=== PATIENT | female | born 1985 | race African-American/Black ===

== ENCOUNTER 2017-01-04 06:34 | Emergency (ER) | payer MEDICAID, MEDICARE ==
[~2017-01-04] VITALS: Ht 157.5 cm; Wt 50.0 kg
[~2017-01-04 06:34] MED LIST: INSU1INS; METF500T4 PO; REGLAN
[2017-01-04] MEDS ORDERED: SODIUM CHLORIDE 0.9% 1000ML BAG (SEPSIS BOLUS) IV ONE (07:45)
[2017-01-04] MEDS ORDERED: INSULIN REGULAR (HUMULIN R) 300UNITS/3ML SUBCUT ONE (07:45)
[2017-01-04] MEDS ORDERED: ONDANSETRON HCL 4MG/2ML VIAL IV PRN ×2 (09:00→10:00)
[2017-01-04] MEDS ORDERED: MORPHINE SULFATE 4 MG/ML CPJ (NOT FOR IM USE) IV PRN (09:00)
[2017-01-04 09:08] LABS: BASOPHILS % 0.9 % (0.0-2.0); EOSINOPHILS % 0.2 % (0.0-5.0); HEMATOCRIT. 34.2 % (36.0-48.0); HEMOGLOBIN. 10.8 g/dL (12.0-16.0); LYMPHOCYTES % 12.7 % (20.0-50.0); MEAN CORPUSCULAR HEMOGLOBIN 30.7 pg (28.0-32.0); MEAN CORPUSCULAR HGB CONC 31.7 g/dL (31.0-37.0); MEAN CORPUSCULAR VOLUME 96.8 fL (81.0-99.0); MEAN PLATELET VOLUME 8.3 fl (7.4-10.4); MONOCYTES % 3.3 % (2.0-8.0); NEUTROPHILS % 82.9 % (40.0-76.0); PLATELET 344 x1000/uL (130-400); RED BLOOD CELL COUNT 3.53 mill/uL (4.2-5.4); RED CELL DISTRIBUTION WIDTH 14.6 % (11.6-14.6); WHITE BLOOD COUNT 17.6 x1000/uL (4.5-11.0)
[2017-01-04 09:14] LABS: CHLORIDE 102 mEq/L (98-107); INDEX HEMOLYSI 1 (1-3); INDEX ICTERIC 1 (1-4); INDEX LIPEMIC 1 (1-3)
[2017-01-04 09:16] LABS: INR 1.1; PROTHROMBIN TIME 11.4 sec
[2017-01-04 09:23] LABS: ALANINE AMINOTRANSFERASE 12 IU/L (13-61); ALBUMIN 4.2 g/dL (3.4-5.0); ANION GAP 24; CALCIUM 9.6 mg/dL (8.5-10.1); CARBON DIOXIDE 15 mEq/L (21-32); UREA NITROGEN BLOOD 18 mg/dL (7-21); eGFR > 60 mL/min (>60)
[2017-01-04 09:24] LABS: BETA HYDROXYBUTYRATE 5.6 mMol/L (0.0-0.3)
[2017-01-04] MEDS ORDERED: SODIUM CHLORIDE 0.45% 1,000 ML IV SCH (09:52)
[2017-01-04] MEDS ORDERED: LORAZEPAM 2MG/ML CPJ IV PRN (10:00)
[2017-01-04] MEDS ORDERED: HYDROCODONE/ACETAMINOPHEN 5/325MG TABLET PO PRN (10:00)
[2017-01-04] MEDS ORDERED: ENOXAPARIN 40MG/0.4ML SYR SUBCUT SCH (10:00)
[2017-01-04] MEDS ORDERED: GUAIFENESIN 200MG/10ML SUGAR FREE UDC PO PRN (10:00)
[2017-01-04] MEDS ORDERED: DIPHENHYDRAMINE 50MG/ML VIAL IV PRN (10:00)
[2017-01-04] MEDS ORDERED: CLONIDINE 0.1MG TABLET PO PRN (10:00)
[2017-01-04] MEDS ORDERED: HYDROMORPHONE HCL/PF 2MG/ML CPJ IV PRN (10:00)
[2017-01-04] MEDS ORDERED: ACETAMINOPHEN 325MG TABLET PO PRN (10:00)
[2017-01-04] MEDS ORDERED: MAGNESIUM/ALUMINUM HYDROXIDE/SIMETHICONE 30ML UDC PO PRN (10:00)
[2017-01-04] MEDS ORDERED: NA PHOS,M-B/NA PHOS,DI-BA ENEMA 118ML PR PRN (10:00)
[2017-01-04] MEDS ORDERED: IPRATROPIUM/ALBUTEROL 0.5-3(2.5)MG/3ML NEB INH PRN (10:00)
[2017-01-04] MEDS ORDERED: DOCUSATE SODIUM 100MG CAPSULE PO PRN (10:00)
[2017-01-04 10:06] LABS: CLARITY URINE CLEAR (CLEAR); COLOR URINE YELLOW (YELLOW); GLUCOSE URINE 3+ (NEGATIVE); KETONES URINE 4+ (NEGATIVE); LEUKOCYTE ESTERASE URINE NEGATIVE (NEGATIVE); NITRITE URINE NEGATIVE (NEGATIVE); OCCULT BLOOD URINE NEGATIVE (NEGATIVE); PH URINE 5.5 (4.5-8.0); PROTEIN URINE NEGATIVE (NEGATIVE); UROBILINOGEN URINE 0.2 E.U./dL (0.2-1.0)
[2017-01-04 10:08] LABS: BACTERIA URINE NONE SEEN; CALCIUM PHOSPHATE CRYSTALS UR NONE SEEN /lpf; RBC URINE 0-2 /hpf (0-2); SQUAMOUS EPITHELIAL CELL URINE 1+ /lpf (RARE/1+); WAXY CASTS URINE NONE SEEN /lpf; WBC URINE 0-2 /hpf (0-2); YEAST URINE NONE SEEN
[2017-01-04 10:54] LABS: CHLORIDE 110 mEq/L (98-107); INDEX HEMOLYSI 1 (1-3); INDEX ICTERIC 1 (1-4); INDEX LIPEMIC 1 (1-3)
[2017-01-04 11:00] LABS: ANION GAP 19; CALCIUM 8.6 mg/dL (8.5-10.1); CARBON DIOXIDE 18 mEq/L (21-32); UREA NITROGEN BLOOD 17 mg/dL (7-21); eGFR > 60 mL/min (>60)
[2017-01-04] MEDS ORDERED: LEVOFLOXACIN 750MG PREMIX 150 ML IV SCH (11:15)
[2017-01-04] MEDS ORDERED: INSULIN REGULAR (DRIP) 100 UNITS in SODIUM CHLORIDE 0.9% 100 ML IV SCH (11:15)
[2017-01-04] MEDS ORDERED: ONDANSETRON HCL 4MG/2ML VIAL IV ONE (12:15)
[2017-01-04 12:52] VITALS: BP 101/70
[2017-01-05] MEDS ORDERED: ASPIRIN 81MG EC TABLET PO SCH (09:00)
== END 2017-01-04 12:58 | disposition left against medical advice (07) ==
LOC: ER 06:35
DX: E11.65 Type 2 diabetes mellitus with hyperglycemia (principal)
CPT/HCPCS: 36415; 80048; 80053; 81001; 82010; 82962; 85025; 85610; 96361; 96372; 96374; 96375; 96376; 99285; J1815; J1956; J2270; J2405; J7030; Z7610; J7050

== ENCOUNTER 2017-03-21 12:17 | Inpatient (IN) | payer MEDICAID ==
[2017-03-21] VITALS (16 sets, daily range): BP systolic 90–118; BP diastolic 52–77
[~2017-03-21] VITALS: Ht 152.4 cm; Wt 46.9 kg
[2017-03-21] MEDS ORDERED: SODIUM CHLORIDE 0.9% 1,000 ML IV ONE (12:41)
[2017-03-21] MEDS ORDERED: ONDANSETRON HCL 4MG/2ML VIAL IV ONE (13:15)
[2017-03-21] MEDS ORDERED: MORPHINE SULFATE 4 MG/ML CPJ (NOT FOR IM USE) IV ONE (13:15)
[2017-03-21 13:21] LABS: CHLORIDE 100 mEq/L (98-107)
[2017-03-21 13:25] LABS: BASOPHILS % 0.4 % (0.0-2.0); HEMATOCRIT. 40.1 % (36.0-48.0); HEMOGLOBIN. 13.1 g/dL (12.0-16.0); LYMPHOCYTES % 14.1 % (20.0-50.0); MEAN CORPUSCULAR HEMOGLOBIN 30.8 pg (28.0-32.0); MEAN CORPUSCULAR VOLUME 94.3 fL (81.0-99.0); MEAN PLATELET VOLUME 8.1 fl (7.4-10.4); MONOCYTES % 2.8 % (2.0-8.0); NEUTROPHILS % 82.7 % (40.0-76.0); PLATELET 411 x1000/uL (130-400); RED BLOOD CELL COUNT 4.25 mill/uL (4.2-5.4); RED CELL DISTRIBUTION WIDTH 14.4 % (11.6-14.6)
[2017-03-21 13:30] LABS: CARBON DIOXIDE 17 mEq/L (21-32)
[2017-03-21 13:45] LABS: BETA HYDROXYBUTYRATE 6.8 mMol/L (0.0-0.3)
[2017-03-21] MEDS ORDERED: INSULIN REGULAR (DRIP) 100 UNITS in SODIUM CHLORIDE 0.9% 99 ML IV SCH ×2 (14:30→18:01)
[2017-03-21] MEDS ORDERED: DIPHENHYDRAMINE 50MG/ML VIAL IV ONE (14:30)
[2017-03-21] MEDS ORDERED: SODIUM CHLORIDE 0.9% 1,000 ML IV PRN (17:29)
[2017-03-21] MEDS ORDERED: ACETAMINOPHEN 325MG TABLET PO PRN (17:30)
[2017-03-21] MEDS ORDERED: CLONIDINE 0.1MG TABLET PO PRN (17:30)
[2017-03-21] MEDS ORDERED: INSULIN REGULAR (DRIP) 100 UNITS in SODIUM CHLORIDE 0.9% 100 ML IV SCH (17:30)
[2017-03-21] MEDS ORDERED: IPRATROPIUM/ALBUTEROL 0.5-3(2.5)MG/3ML NEB INH PRN (17:30)
[2017-03-21] MEDS ORDERED: ONDANSETRON HCL 4MG/2ML VIAL IV PRN (17:30)
[2017-03-21] MEDS ORDERED: MAGNESIUM/ALUMINUM HYDROXIDE/SIMETHICONE 30ML UDC PO PRN (17:30)
[2017-03-21] MEDS ORDERED: SODIUM CHL 0.9% + KCL 20MEQ/L 1,000 ML IV SCH ×2 (18:00→19:30)
[2017-03-21] MEDS ORDERED: DEXT 5%/0.9% NACL 1,000 ML IV PRN (18:00)
[2017-03-21] MEDS ORDERED: DEXTROSE 50% WATER 50ML SYRINGE IV PRN (18:15)
[2017-03-21] MEDS: BLOOD SUGAR DIAGNOSTIC STRIP TEST SCH ×6 (18:19→23:16)
[2017-03-21] MEDS: DEXTROSE 50% WATER 50ML SYRINGE IV PRN (18:24)
[2017-03-21 19:28] LABS: CLARITY URINE CLEAR (CLEAR); COLOR URINE YELLOW (YELLOW); GLUCOSE URINE 3+ (NEGATIVE); KETONES URINE 4+ (NEGATIVE); LEUKOCYTE ESTERASE URINE NEGATIVE (NEGATIVE); NITRITE URINE NEGATIVE (NEGATIVE); OCCULT BLOOD URINE NEGATIVE (NEGATIVE); PROTEIN URINE NEGATIVE (NEGATIVE); SPECIFIC GRAVITY URINE 1.032 (1.005-1.030); UROBILINOGEN URINE 0.2 E.U./dL (0.2-1.0)
[2017-03-21 19:34] LABS: CHLORIDE 108 mEq/L (98-107)
[2017-03-21 19:40] LABS: CARBON DIOXIDE 23 mEq/L (21-32); PHOSPHORUS 1.4 mg/dL (2.5-4.9)
[2017-03-21 19:41] LABS: *AMPHETAMINES SCREEN URINE NEGATIVE (NEGATIVE); *BARBITURATES SCREEN URINE NEGATIVE (NEGATIVE); *BENZODIAZEPINES SCREEN URINE NEGATIVE (NEGATIVE); *COCAINE SCREEN URINE NEGATIVE (NEGATIVE); METHADONE URINE SCREEN NEGATIVE (NEGATIVE); PHENCYCLIDINE URINE SCREEN NEGATIVE (NEGATIVE)
[2017-03-21 19:53] LABS: CANNABINOID URINE SCREEN PRESUMTIVE POSITIVE (NEGATIVE); OPIATES URINE SCREEN PRESUMTIVE POSITIVE (NEGATIVE)
[2017-03-21] MEDS: ENOXAPARIN 30MG/0.3ML SYR SUBCUT SCH (20:00)
[2017-03-21] MEDS: HYDROCODONE/ACETAMINOPHEN 5/325MG TABLET PO PRN (21:58)
[2017-03-21] MEDS ORDERED: POTASSIUM CHLORIDE INJ 20 MEQ in DEXT 5%/0.9% NACL 1,000 ML IV SCH (22:00)
[2017-03-21] MEDS ORDERED: DEXT 5%/0.9% NACL KCL 20MEQ/L 1,000 ML IV SCH (23:00)
[2017-03-22] VITALS (16 sets, daily range): BP systolic 89–117; BP diastolic 52–80
[2017-03-22] MEDS: BLOOD SUGAR DIAGNOSTIC STRIP TEST SCH ×9 (00:22→08:07)
[2017-03-22] MEDS: DEXTROSE 50% WATER 50ML SYRINGE IV PRN (02:23)
[2017-03-22 05:02] LABS: BASOPHILS % 0.5 % (0.0-2.0); EOSINOPHILS % 1.9 % (0.0-5.0); HEMATOCRIT. 30.7 % (36.0-48.0); HEMOGLOBIN. 10.1 g/dL (12.0-16.0); LYMPHOCYTES % 34.4 % (20.0-50.0); MEAN CORPUSCULAR HEMOGLOBIN 30.9 pg (28.0-32.0); MEAN CORPUSCULAR VOLUME 93.7 fL (81.0-99.0); MEAN PLATELET VOLUME 8.1 fl (7.4-10.4); MONOCYTES % 7.4 % (2.0-8.0); NEUTROPHILS % 55.8 % (40.0-76.0); PLATELET 279 x1000/uL (130-400); RED BLOOD CELL COUNT 3.27 mill/uL (4.2-5.4); RED CELL DISTRIBUTION WIDTH 13.9 % (11.6-14.6)
[2017-03-22 05:50] LABS: CARBON DIOXIDE 23 mEq/L (21-32); CHLORIDE 108 mEq/L (98-107); HDL CHOLESTEROL 86 mg/dL (40-59); LDL CHOLESTEROL 42 mg/dL (5-100)
[2017-03-22] MEDS: ENOXAPARIN 30MG/0.3ML SYR SUBCUT SCH (08:11)
[2017-03-22] MEDS: HYDROCODONE/ACETAMINOPHEN 5/325MG TABLET PO PRN (08:12)
[2017-03-22] MEDS ORDERED: DEXTROSE 50% WATER 50ML SYRINGE IV PRN (08:45)
[2017-03-22] MEDS ORDERED: BLOOD SUGAR DIAGNOSTIC STRIP TEST SCH (09:00)
[2017-03-22] MEDS ORDERED: INSULIN DETEMIR UD 100 UNITS/ML SYR SUBCUT NR (09:00)
[2017-03-22] MEDS ORDERED: INSULIN LISPRO 100 UNITS/ML SUBCUT SCH (09:00)
[2017-03-22] MEDS ORDERED: PANTOPRAZOLE 40MG DR TABLET PO NR (09:15)
[2017-03-22] MEDS ORDERED: INSU3INS6 SUBCUT ×2 (10:35→12:01)
[2017-03-22] MEDS ORDERED: ALPR0.2582 PO (12:11)
== END 2017-03-22 14:00 | disposition home or self-care (01) | DRG 420 ==
LOC: ER 14:41 → MICUSO 15:14 → EDBEDREQ 15:18 → ENRESERV 15:55
PROVIDERS: ADMIT Internal Medicine; ATTEND Internal Medicine
DX: E13.10 Other specified diabetes mellitus with ketoacidosis without coma (principal); E86.0 Dehydration; F12.90 Cannabis use, unspecified, uncomplicated
CPT/HCPCS: 36415; 71010; 80048; 80053; 80061; 80305; 81001; 82010; 82962; 83735; 84100; 84443; 85025; 87040; 87086; 93005; 93970; 96365; 96375; 99285; J1200; J1650; J1815; J2270; J2405; J3480; J7030; J7050

== ENCOUNTER 2017-06-10 02:59 | Emergency (ER) | payer SELFPAY ==
[~2017-06-10] VITALS: Ht 165.1 cm; Wt 52.0 kg
[~2017-06-10 02:59] MED LIST changes: +ALPR0.25 PO; +INSU3INS6 SUBCUT
[2017-06-10] MEDS ORDERED: SODIUM CHLORIDE 0.9% 1,000 ML IV ONE (06:30)
[2017-06-10] MEDS ORDERED: ONDANSETRON HCL 4MG TABLET PO ONE (06:30)
[2017-06-10] MEDS ORDERED: MORPHINE SULFATE 4 MG/ML CPJ (NOT FOR IM USE) IV ONE (06:30)
[2017-06-10 07:10] LABS: BASOPHILS % 0.9 % (0.0-2.0); EOSINOPHILS % 1.9 % (0.0-5.0); HEMATOCRIT. 36.4 % (36.0-48.0); HEMOGLOBIN. 12.2 g/dL (12.0-16.0); LYMPHOCYTES % 26.4 % (20.0-50.0); MEAN CORPUSCULAR HEMOGLOBIN 31.4 pg (28.0-32.0); MEAN CORPUSCULAR VOLUME 93.3 fL (81.0-99.0); MEAN PLATELET VOLUME 8.1 fl (7.4-10.4); NEUTROPHILS % 64.8 % (40.0-76.0); PLATELET 332 x1000/uL (130-400); RED CELL DISTRIBUTION WIDTH 13.6 % (11.6-14.6)
[2017-06-10 07:19] LABS: CHLORIDE 104 mEq/L (98-107)
[2017-06-10 07:29] LABS: CARBON DIOXIDE 29 mEq/L (21-32)
[2017-06-10 10:52] LABS: CLARITY URINE CLOUDY (CLEAR); COLOR URINE DARK YELLOW (YELLOW); GLUCOSE URINE NEGATIVE (NEGATIVE); KETONES URINE 2+ (NEGATIVE); LEUKOCYTE ESTERASE URINE 2+ (NEGATIVE); NITRITE URINE POSITIVE (NEGATIVE); OCCULT BLOOD URINE TRACE (NEGATIVE); PH URINE 5.5 (4.5-8.0); PROTEIN URINE TRACE (NEGATIVE); SPECIFIC GRAVITY URINE 1.028 (1.005-1.030)
[2017-06-10 10:54] LABS: UCG SCREEN NEGATIVE
[2017-06-10 11:15] VITALS: BP 117/73
== END 2017-06-10 11:24 | disposition home or self-care (01) ==
LOC: ER 02:59
DX: N39.0 Urinary tract infection, site not specified (principal); R11.2 Nausea with vomiting, unspecified; E11.9 Type 2 diabetes mellitus without complications; F41.9 Anxiety disorder, unspecified; F12.10 Cannabis abuse, uncomplicated; Z79.4 Long term (current) use of insulin
CPT/HCPCS: 36415; 74010; 80053; 81001; 81025; 82962; 85025; 96361; 96374; 96375; 99285; J2270; J7030; Q0162; Z7610

== ENCOUNTER 2017-11-08 15:04 | Emergency (ER) | payer MEDICAID ==
[~2017-11-08] VITALS: Ht 165.1 cm; Wt 58.0 kg
[2017-11-08] MEDS ORDERED: SODIUM CHLORIDE 0.9% 1,000 ML IV ONE ×2 (15:26→17:38)
[2017-11-08 15:53] LABS: BASOPHILS % 1.2 % (0.0-2.0); EOSINOPHILS % 3.2 % (0.0-5.0); HEMATOCRIT. 36.7 % (36.0-48.0); MEAN CORPUSCULAR VOLUME 94.5 fL (81.0-99.0); MEAN PLATELET VOLUME 7.6 fl (7.4-10.4); MONOCYTES % 6.3 % (2.0-8.0); NEUTROPHILS % 59.3 % (40.0-76.0); PLATELET 398 x1000/uL (130-400); RED BLOOD CELL COUNT 3.88 mill/uL (4.2-5.4); RED CELL DISTRIBUTION WIDTH 13.1 % (11.6-14.6)
[2017-11-08 15:56] LABS: CHLORIDE 100 mEq/L (98-107)
[2017-11-08] MEDS ORDERED: ONDANSETRON HCL 4MG/2ML VIAL IV ONE ×2 (16:00→18:00)
[2017-11-08] MEDS ORDERED: KETOROLAC 30MG/ML VIAL IV ONE (16:00)
[2017-11-08 16:04] LABS: BG BASE EXCESS -1.1 mmol/L (-2.0-2.0); BG CARBOXYHEMOGLOBIN 1.1 % (0.5-1.5); BG FRACTION INSPIRED OXYGEN 21; BG HCO3 ACT 23.8 mmol/L (22.0-26.0); BG METHEMOGLOBIN 0.2 % (0.0-1.5); BG OXYHEMOGLOBIN 95.7 % (94.0-97.0); BG PCO2 40.2 mmHg (35.0-45.0); BG SAMPLE SITE RIGHT BRACHIAL; BG TOTAL HEMOGLOBIN 11.6 g/dL (12.0-18.0); BG VENT MODE ROOM AIR
[2017-11-08 16:14] LABS: BETA HYDROXYBUTYRATE 2.5 mMol/L (0.0-0.3)
[2017-11-08] MEDS ORDERED: INSULIN REGULAR (HUMULIN R) 300UNITS/3ML IV ONE (16:30)
[2017-11-08] MEDS ORDERED: MORPHINE SULFATE 4 MG/ML CPJ (NOT FOR IM USE) IV STA (17:37)
[2017-11-08 18:01] LABS: HCG SCREEN NEGATIVE
[2017-11-08 18:07] LABS: CLARITY URINE CLEAR (CLEAR); COLOR URINE YELLOW (YELLOW); KETONES URINE 3+ (NEGATIVE); LEUKOCYTE ESTERASE URINE NEGATIVE (NEGATIVE); NITRITE URINE NEGATIVE (NEGATIVE); OCCULT BLOOD URINE NEGATIVE (NEGATIVE); PH URINE 5.5 (4.5-8.0); PROTEIN URINE NEGATIVE (NEGATIVE); SPECIFIC GRAVITY URINE 1.031 (1.005-1.030)
[2017-11-08 19:12] VITALS: BP 111/68
== END 2017-11-08 19:20 | disposition home or self-care (01) ==
LOC: ER 17:08
DX: R10.13 Epigastric pain (principal); R11.2 Nausea with vomiting, unspecified; E11.65 Type 2 diabetes mellitus with hyperglycemia; N70.11 Chronic salpingitis; F12.10 Cannabis abuse, uncomplicated; F41.9 Anxiety disorder, unspecified; Z79.4 Long term (current) use of insulin
CPT/HCPCS: 36415; 36600; 71045; 74176; 80053; 81001; 82010; 82375; 82805; 82962; 84703; 85025; 93005; 96361; 96374; 96375; 99285; J1815; J1885; J2270; J2405; J7030

== ENCOUNTER 2017-11-27 04:56 | Emergency (ER) | payer MEDICAID ==
[~2017-11-27] VITALS: Ht 165.1 cm; Wt 59.0 kg
[2017-11-27] MEDS ORDERED: SODIUM CHLORIDE 0.9% 1,000 ML IV ONE (06:20)
[2017-11-27] MEDS ORDERED: ONDANSETRON HCL 4MG/2ML VIAL IV ONE (06:30)
[2017-11-27] MEDS ORDERED: KETOROLAC 30MG/ML VIAL IV ONE (06:45)
[2017-11-27 07:09] LABS: BASOPHILS % 0.4 % (0.0-2.0); EOSINOPHILS % 1.2 % (0.0-5.0); HEMATOCRIT. 35.8 % (36.0-48.0); HEMOGLOBIN. 11.9 g/dL (12.0-16.0); LYMPHOCYTES % 15.8 % (20.0-50.0); MEAN CORPUSCULAR HEMOGLOBIN 31.8 pg (28.0-32.0); MEAN CORPUSCULAR VOLUME 95.9 fL (81.0-99.0); MEAN PLATELET VOLUME 8.1 fl (7.4-10.4); MONOCYTES % 4.5 % (2.0-8.0); NEUTROPHILS % 78.1 % (40.0-76.0); PLATELET 389 x1000/uL (130-400); RED BLOOD CELL COUNT 3.73 mill/uL (4.2-5.4); RED CELL DISTRIBUTION WIDTH 14.2 % (11.6-14.6)
[2017-11-27 07:12] LABS: CHLORIDE 98 mEq/L (98-107)
[2017-11-27 07:15] LABS: BG BASE EXCESS 1.8 mmol/L (-2.0-2.0); BG CARBOXYHEMOGLOBIN 3.3 % (0.5-1.5); BG DEOXYHEMOGLOBIN 5.2 % (0.0-5.0); BG HCO3 ACT 26.5 mmol/L (22.0-26.0); BG METHEMOGLOBIN 0.3 % (0.0-1.5); BG OXYGEN SATURATION 94.6 % (92.0-98.5); BG OXYHEMOGLOBIN 91.2 % (94.0-97.0); BG PH 7.418 (7.350-7.450); BG PO2 71.8 mmHg (75.0-100.0); BG SAMPLE SITE RIGHT BRACHIAL; BG TOTAL HEMOGLOBIN 12.7 g/dL (12.0-18.0); BG VENT MODE ROOM AIR
[2017-11-27 07:22] LABS: BETA HYDROXYBUTYRATE 1.8 mMol/L (0.0-0.3)
[2017-11-27] MEDS ORDERED: POTASSIUM CHLORIDE 20MEQ TABLET SR PO ONE (07:45)
[2017-11-27] MEDS ORDERED: INSULIN REGULAR (HUMULIN R) 300UNITS/3ML IV ONE (07:45)
[2017-11-27 08:46] VITALS: BP 128/75
== END 2017-11-27 12:18 | disposition home or self-care (01) ==
LOC: ER 05:11
DX: E11.65 Type 2 diabetes mellitus with hyperglycemia (principal); R51 Headache; R03.0 Elevated blood-pressure reading, without diagnosis of hypertension; F12.90 Cannabis use, unspecified, uncomplicated; F41.9 Anxiety disorder, unspecified; Z79.4 Long term (current) use of insulin
CPT/HCPCS: 36415; 36600; 80053; 82010; 82375; 82805; 82962; 85025; 93005; 96361; 96374; 96375; 99285; J1815; J1885; J2405; J7030; Z7610

== ENCOUNTER 2018-09-07 23:19 | Emergency (ER) | payer MEDICAID ==
[~2018-09-07] VITALS: Ht 152.4 cm; Wt 53.0 kg
[~2018-09-07 23:19] MED LIST changes: +METF-414 PO; -METF500T4 PO
[2018-09-08] MEDS ORDERED: ONDANSETRON HCL 4MG/2ML INJ IV STA (01:12)
[2018-09-08] MEDS ORDERED: KETOROLAC 30MG/ML VIAL IV STA (01:12)
[2018-09-08] MEDS ORDERED: MORPHINE SULFATE 4 MG/ML CPJ (NOT FOR IM USE) IV STA (01:12)
[2018-09-08] MEDS ORDERED: SODIUM CHLORIDE 0.9% 1,000 ML IV ONE (01:12)
[2018-09-08] MEDS ORDERED: INSULIN GLARGINE UD 100 UNITS/ML SYR SUBCUT ONE (01:15)
[2018-09-08 03:03] LABS: HCG SCREEN NEGATIVE
[2018-09-08 03:08] LABS: BASOPHILS % 0.6 % (0.0-2.0); EOSINOPHILS % 4.5 % (0.0-5.0); HEMATOCRIT. 36.2 % (36.0-48.0); HEMOGLOBIN. 12.7 g/dL (12.0-16.0); LYMPHOCYTES % 37.8 % (20.0-50.0); MEAN CORPUSCULAR HEMOGLOBIN 33.3 pg (28.0-32.0); MEAN CORPUSCULAR VOLUME 95.2 fL (81.0-99.0); MEAN PLATELET VOLUME 9.6 fl (7.4-10.4); MONOCYTES % 6.6 % (2.0-8.0); NEUTROPHILS % 50.5 % (40.0-76.0); PLATELET 417 x1000/uL (130-400); RED CELL DISTRIBUTION WIDTH 14.2 % (11.6-14.6)
[2018-09-08 04:16] LABS: CHLORIDE 108 mEq/L (98-107)
[2018-09-08 04:21] LABS: ETHANOL BLOOD < 10 mg/dL
[2018-09-08 05:15] VITALS: BP 123/79
== END 2018-09-08 05:17 | disposition home or self-care (01) ==
LOC: ER 23:19
DX: E11.649 Type 2 diabetes mellitus with hypoglycemia without coma (principal); G43.909 Migraine, unspecified, not intractable, without status migrainosus; F41.9 Anxiety disorder, unspecified; Z76.0 Encounter for issue of repeat prescription; Z79.4 Long term (current) use of insulin
CPT/HCPCS: 36415; 80053; 82962; 83690; 83880; 84484; 84703; 85025; 96361; 96374; 96375; 99284; G0482; J1815; J1885; J2270; J2405; J7030

== ENCOUNTER 2018-10-26 00:37 | Emergency (ER) | payer MEDICAID ==
[~2018-10-26] VITALS: Ht 152.4 cm; Wt 54.4 kg
[2018-10-26 00:47] VITALS: BP 104/68
== END 2018-10-26 03:25 | disposition left against medical advice (07) ==
LOC: ER 00:56
DX: R11.2 Nausea with vomiting, unspecified (principal); Z53.21 Procedure and treatment not carried out due to patient leaving prior to being seen by health care provider

== ENCOUNTER 2019-03-31 07:23 | Inpatient (IN) | payer MEDICAID, OTHER ==
[~2019-03-31] VITALS: Ht 152.4 cm; Wt 49.9 kg
[2019-03-31] MEDS ORDERED: SODIUM CHLORIDE 0.9% 1,000 ML IV ONE ×2 (07:39→08:45)
[2019-03-31] MEDS ORDERED: ONDANSETRON HCL 4MG/2ML INJ IV STA (07:39)
[2019-03-31 08:14] LABS: KETONES URINE 3+ (NEGATIVE); LEUKOCYTE ESTERASE URINE NEGATIVE (NEGATIVE); NITRITE URINE NEGATIVE (NEGATIVE); OCCULT BLOOD URINE NEGATIVE (NEGATIVE); PH URINE 5.5 (4.5-8.0); PROTEIN URINE NEGATIVE (NEGATIVE); SPECIFIC GRAVITY URINE 1.034 (1.005-1.030); UROBILINOGEN URINE 0.2 E.U./dL (0.2-1.0)
[2019-03-31 08:15] LABS: CLARITY URINE HAZY (CLEAR); COLOR URINE PALE YELLOW (YELLOW)
[2019-03-31 08:31] LABS: EOSINOPHILS % 5.5 % (0.0-5.0); HEMATOCRIT. 37.5 % (36.0-48.0); HEMOGLOBIN. 12.3 g/dL (12.0-16.0); LYMPHOCYTES % 38.6 % (20.0-50.0); MEAN CORPUSCULAR HEMOGLOBIN 31.6 pg (28.0-32.0); MEAN CORPUSCULAR VOLUME 96.5 fL (81.0-99.0); MEAN PLATELET VOLUME 8.3 fl (7.4-10.4); MONOCYTES % 5.8 % (2.0-8.0); NEUTROPHILS % 49.1 % (40.0-76.0); PLATELET 336 x1000/uL (130-400); RED BLOOD CELL COUNT 3.89 mill/uL (4.2-5.4); RED CELL DISTRIBUTION WIDTH 14.3 % (11.6-14.6)
[2019-03-31 08:52] LABS: CHLORIDE 103 mEq/L (98-107)
[2019-03-31 08:59] LABS: BETA HYDROXYBUTYRATE 3.9 mMol/L (0.0-0.3)
[2019-03-31] MEDS ORDERED: MORPHINE SULFATE 4 MG/ML CPJ (NOT FOR IM USE) IV ONE (09:00)
[2019-03-31] MEDS ORDERED: INSULIN REGULAR (DRIP) 100 UNITS in SODIUM CHLORIDE 0.9% 100 ML IV ONE (09:08)
[2019-03-31] MEDS ORDERED: SODIUM CHLORIDE 0.9% 1,000 ML IV SCH (11:16)
[2019-03-31] MEDS ORDERED: IPRATROPIUM/ALBUTEROL 0.5-3(2.5)MG/3ML NEB INH PRN (11:30)
[2019-03-31] MEDS ORDERED: GUAIFENESIN 200MG/10ML SUGAR FREE UDC PO PRN (11:30)
[2019-03-31] MEDS ORDERED: DIPHENHYDRAMINE 50MG/ML VIAL IV PRN (11:30)
[2019-03-31] MEDS ORDERED: CLONIDINE 0.1MG TABLET PO PRN (11:30)
[2019-03-31] MEDS ORDERED: ENOXAPARIN 40MG/0.4ML SYR SUBCUT SCH ×2 (11:30→22:00)
[2019-03-31] MEDS ORDERED: MAGNESIUM/ALUMINUM HYDROXIDE/SIMETHICONE 30ML UDC PO PRN (11:30)
[2019-03-31] MEDS ORDERED: DOCUSATE SODIUM 100MG CAPSULE PO PRN (11:30)
[2019-03-31] MEDS ORDERED: ACETAMINOPHEN 325MG TABLET PO PRN (11:30)
[2019-03-31] MEDS ORDERED: ONDANSETRON HCL 4MG/2ML INJ IV PRN (11:30)
[2019-03-31 12:03] LABS: CHLORIDE 112 mEq/L (98-107)
[2019-03-31 12:09] LABS: PHOSPHORUS 1.6 mg/dL (2.5-4.9)
[2019-03-31] MEDS: HYDROCODONE/ACETAMINOPHEN 5/325MG TABLET PO PRN ×2 (15:28→20:39)
[2019-03-31 16:30] LABS: CHLORIDE 111 mEq/L (98-107)
[2019-03-31] MEDS ORDERED: DEXT 5%/0.9% NACL KCL 20MEQ/L 1,000 ML IV ONE (17:00)
[2019-03-31] MEDS ORDERED: POTASSIUM CHLORIDE INJ 20 MEQ in DEXT 5%/0.9% NACL 1,000 ML IV ONE (17:00)
[2019-03-31 17:01] LABS: CREATINE KINASE 75 IU/L (26-192)
[2019-03-31 17:02] LABS: CREATINE KINASE MB FRACTION < 1.0 ng/mL (0.5-3.6)
[2019-03-31 20:12] LABS: CHLORIDE 114 mEq/L (98-107)
[2019-03-31] MEDS ORDERED: DEXTROSE 50% WATER 50ML SYRINGE IV PRN (21:15)
[2019-03-31] MEDS ORDERED: INSULIN GLARGINE UD 100 UNITS/ML SYR SUBCUT SCH (22:00)
[2019-03-31 22:22] VITALS: BP 123/76
[2019-03-31 23:11] LABS: CREATINE KINASE 84 IU/L (26-192)
[2019-03-31 23:12] LABS: CREATINE KINASE MB FRACTION < 1.0 ng/mL (0.5-3.6)
[2019-04-01] VITALS: BP 132/81
[2019-04-01] MEDS: DEXT 5%/0.9% NACL KCL 20MEQ/L 1,000 ML IV SCH ×2 (00:18→08:22)
[2019-04-01 00:27] LABS: CHLORIDE 110 mEq/L (98-107)
[2019-04-01 04:00] VITALS: BP 130/80
[2019-04-01] MEDS: BLOOD SUGAR DIAGNOSTIC STRIP TEST SCH ×2 (06:10→12:07)
[2019-04-01] MEDS: INSULIN LISPRO (HIGH DOSE) 100 UNITS/ML SUBCUT SCH ×2 (06:29→12:07)
[2019-04-01 06:45] LABS: EOSINOPHILS % 3.6 % (0.0-5.0); HEMATOCRIT. 31.1 % (36.0-48.0); HEMOGLOBIN. 10.3 g/dL (12.0-16.0); LYMPHOCYTES % 45.1 % (20.0-50.0); MEAN CORPUSCULAR HEMOGLOBIN 31.7 pg (28.0-32.0); MEAN CORPUSCULAR VOLUME 96.1 fL (81.0-99.0); MEAN PLATELET VOLUME 8.5 fl (7.4-10.4); MONOCYTES % 6.6 % (2.0-8.0); NEUTROPHILS % 43.7 % (40.0-76.0); PLATELET 265 x1000/uL (130-400); RED BLOOD CELL COUNT 3.24 mill/uL (4.2-5.4); RED CELL DISTRIBUTION WIDTH 14.2 % (11.6-14.6)
[2019-04-01 07:16] LABS: CHLORIDE 111 mEq/L (98-107)
[2019-04-01 07:28] LABS: LDL CHOLESTEROL 22 mg/dL (5-100)
[2019-04-01 07:30] LABS: HDL CHOLESTEROL 85 mg/dL (40-59)
[2019-04-01 07:55] VITALS: BP 128/82
[2019-04-01] MEDS: HYDROCODONE/ACETAMINOPHEN 5/325MG TABLET PO PRN (11:07)
[2019-04-01 12:00] VITALS: BP 139/78
[2019-04-01 13:08] VITALS: BP 139/78
== END 2019-04-01 13:35 | disposition home or self-care (01) | DRG 420 ==
LOC: ER 07:23 → 5WST 20:53 → EDBEDREQTM 20:53 → EDBEDREQSVC 20:53 → ENRESERV 20:56
PROVIDERS: ADMIT Internal Medicine; ATTEND Internal Medicine
DX: E11.10 Type 2 diabetes mellitus with ketoacidosis without coma (principal); F17.200 Nicotine dependence, unspecified, uncomplicated; F41.9 Anxiety disorder, unspecified; Z79.84 Long term (current) use of oral hypoglycemic drugs; Z79.4 Long term (current) use of insulin
CPT/HCPCS: 36415; 80048; 80061; 82010; 82550; 82553; 82962; 83605; 83735; 84100; 84443; 93005; 96374; 99285; J1650; J1815; J2270; J2405; J3480; J7030; J7042; J7050

== ENCOUNTER 2019-12-17 17:09 | Emergency (ER) | payer MEDICAID, OTHER ==
[~2019-12-17] VITALS: Ht 170.2 cm; Wt 74.0 kg
[~2019-12-17 17:09] MED LIST changes: -REGLAN
[2019-12-17 18:05] VITALS: BP 109/82
== END 2019-12-17 20:31 | disposition left against medical advice (07) ==
LOC: ER 17:09
DX: Z48.03 Encounter for change or removal of drains (principal); Z53.21 Procedure and treatment not carried out due to patient leaving prior to being seen by health care provider